=== PATIENT | female | born 1975 | race Caucasian/White ===

== ENCOUNTER → 2017-06-17 | Outpatient (CLI) | payer BC, SELFPAY ==
--- NOTE | 2017-06-18 13:11 | MRI ---
EXAM DESCRIPTION: MRI lumbar spine CLINICAL HISTORY: Lumbar radiculopathy. Bilateral leg pain and numbness. COMPARISON: None Available. TECHNIQUE: Standard sagittal and axial MR images of the lumbar spine. FINDINGS: Mild levoscoliosis L5-S1: No significant facet arthrosis. No disc abnormality, canal or foraminal narrowing L4-5: Moderate to severe facet arthrosis with mild hypertrophy. No canal stenosis or descending nerve impingement. Mild narrowing of the inferior foramina without exiting L4 nerve compression L3-4: Moderate facet arthrosis. Mild loss of disc height with ventral endplate osteophyte ridging. No posterior disk abnormality or descending nerve compression. Annular fissure and left lateral broad-based shallow protrusion abuts and minimally posteriorly laterally displaces the exiting left L3 nerve axial T2 image 13, sagittal T2 image 2. Coronal series 701 image 6. No right L3 nerve impingement L2-3: Mild facet arthrosis. No focal disk abnormality, canal or foraminal narrowing L1-2: Minimal facet arthrosis. No focal disc abnormality, canal or foraminal narrowing T12-L1: No canal or foraminal narrowing Conus medullaris and cauda equina are normal No marrow edema or focal marrow lesion. No paravertebral muscle abnormality. No mass or adenopathy in the retroperitoneum IMPRESSION: L3-4: Left lateral annular fissure and protrusion impinging the exiting left L3 nerve Electronically signed by: Uday Harris MD 06/18/2017 1:09 PM CDT
== END ==
LOC: MRI 14:11
PROVIDERS: ATTEND Nurse Practitioner Family
DX: M51.26 Other intervertebral disc displacement, lumbar region (principal)

== ENCOUNTER → 2017-12-29 | Outpatient (CLI) | payer BC, SELFPAY ==
--- NOTE | 2017-12-29 13:16 | MAM ---
Screening BILATERAL MAMMOGRAMS HISTORY: SCREENING COMPARISON: June 12, 2015 TECHNIQUE: Digital 2-D mammograms, and 3-D tomosynthesis, of both breasts were performed in CC and MLO orientations. Mammo CAD analysis also performed. FINDINGS: Scattered fibroglandular tissue identified in both breasts. Benign microcalcifications scattered in both breasts. No obvious mass lesion or concerning microcalcifications detected in either breast. IMPRESSION: No mammographic evidence of malignancy in either breast. BI-RADS: 2, benign findings. Follow-up: Annual surveillance recommended Electronically signed by: Campbell White MD 12/29/2017 1:15 PM [facility]
== END ==
LOC: MAMMO 08:35
PROVIDERS: ATTEND Nurse Practitioner Family
DX: Z12.31 Encounter for screening mammogram for malignant neoplasm of breast (principal)

== ENCOUNTER → 2018-07-16 | Outpatient (CLI) | payer BC | LOC: LAB.O 09:48 | PROVIDERS: ATTEND Nurse Practitioner Family | DX: R30.0 Dysuria (principal) ==